=== PATIENT | female | born 1970 | race Caucasian/White ===

== ENCOUNTER → 2017-01-18 | Outpatient (CLI) | payer OTHER ==
[~2017-01-18] MED LIST: VITAMIN D-32000 UNI2 PO; WOMEN'S DAILY1 EACH PO
== END | disposition home or self-care (01) ==
LOC: RES 01-11 08:00
DX: J43.9 Emphysema, unspecified (principal)
CPT/HCPCS: 94070; 94726; 94729

== ENCOUNTER 2017-01-22 11:40 | Day surgery (SDC) | payer OTHER ==
[~2017-01-22] VITALS: Ht 162.6 cm; Wt 79.5 kg
[2017-01-22 12:17] VITALS: BP 113/64
[2017-01-22] MEDS ORDERED: HYDROCODON-ACE1 EAC7 PO (15:35)
[2017-01-22] MEDS ORDERED: COLACE100 MG PO (15:35)
[2017-01-22 15:55] VITALS: BP 96/53
[2017-01-22 16:40] VITALS: BP 103/60
== END 2017-01-22 16:40 | disposition home or self-care (01) ==
LOC: SDC 11:40
DX: D17.1 Benign lipomatous neoplasm of skin and subcutaneous tissue of trunk (principal); L72.0 Epidermal cyst; E78.5 Hyperlipidemia, unspecified; J43.9 Emphysema, unspecified; L40.9 Psoriasis, unspecified; F17.210 Nicotine dependence, cigarettes, uncomplicated; Z90.710 Acquired absence of both cervix and uterus; Z90.721 Acquired absence of ovaries, unilateral; Z82.3 Family history of stroke; Z80.7 Family history of other malignant neoplasms of lymphoid, hematopoietic and related tissues; Z80.8 Family history of malignant neoplasm of other organs or systems; Z82.49 Family history of ischemic heart disease and other diseases of the circulatory system; Z83.3 Family history of diabetes mellitus
CPT/HCPCS: 88304; J0690; J2250; J3010